=== PATIENT | male | born 1960 | race Caucasian/White ===

== ENCOUNTER 2018-10-01 16:35 | Outpatient (CLI) | payer OTHER ==
--- NOTE | 2018-10-03 10:10 | MRI Report ---
Reason: PAIN IN LEFT KNEE Procedure Date: 10/01/2018 Accession Number: [id number] / [id number] Procedure: MRI - Knee LT W/O CPT Code: FULL RESULT: EXAM: LEFT KNEE MRI WITHOUT CONTRAST EXAM DATE: 10/01/2018 04:56 PM. CLINICAL HISTORY: Pain in left knee. COMPARISON: None. TECHNIQUE: Multiplanar, multisequence T1-weighted and fluid-sensitive sequences of the knee without contrast. Other: None. FINDINGS: Bones: No fractures or subluxations. No marrow edema. No bone lesions. Articular Cartilage: Some multifocal grade 3-4 chondromalacia at the weightbearing aspect of the medial femoral condyle. Lateral compartment appears unremarkable. Minimal grade 1-2 chondromalacia at the patellar apex. Medial Meniscus: The posterior medial meniscus shows undersurface tear and partial subluxation out of the joint. May be a small parameniscal cyst on the posterior margin as well. Lateral Meniscus: The lateral meniscus is intact. Cruciate Ligaments: The anterior and posterior cruciate ligaments are intact. Collateral Ligaments: The medial collateral and lateral collateral ligamentous structures are intact. Tendons: The quadriceps, patellar, semimembranosus, and popliteus tendons are unremarkable. Musculature: No edema or fatty atrophy. Other: No effusion. Small popliteal cyst. No loose bodies. The medial and lateral retinacula are intact. The subcutaneous tissues and fat pads are unremarkable. IMPRESSION: 1. 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 2. Undersurface degenerative tear mid body and posterior horn medial meniscus with partial subluxation out of the joint. No free fragments. Small parameniscal cyst on the posterior margin as well. 3. Lateral meniscus, cruciates, collaterals and quadriceps mechanism appear normal. 4. Small popliteal cyst, no loose bodies. [facility] MUSCULOSKELETAL RADIOLOGY SECTION
== END 2018-10-01 16:36 | disposition home or self-care (01) ==
LOC: DI 16:35
PROVIDERS: ATTEND Family Medicine
DX: M94.262 Chondromalacia, left knee (principal); S83.242A Other tear of medial meniscus, current injury, left knee, initial encounter; M71.22 Synovial cyst of popliteal space [Baker], left knee